=== PATIENT | male | born 1950 | race Caucasian/White ===

== ENCOUNTER 2020-02-08 10:39 | Emergency (ER) | payer MEDICARE, SELFPAY ==
--- NOTE | ~2020-02-08 | XR_ITS ---
EXAMINATION: XR knee LT min 4V DATE: 02/08/2020 12:52 INDICATION: Left knee pain TECHNIQUE: Four views of the left knee were obtained. COMPARISON: None. FINDINGS: Alignment is normal. No fracture or osteochondral lesion. There is mild tricompartmental os teoarthritis characterized by tiny marginal osteophytes. No joint effusion/synovitis. Soft tissues a re unremarkable. IMPRESSION: 1. No acute osseous abnormality. Reviewed, dictated and finalized at location A.
--- NOTE | ~2020-02-08 | XR_ITS ---
EXAMINATION: XR elbow LT min 3V DATE: 02/08/2020 12:51 INDICATION: Left elbow pain. TECHNIQUE: 4 views of left elbow were obtained. COMPARISON: None. FINDINGS: Bone alignment is normal. No fracture. There is mild elbow joint osteoarthritis. There are enthesophytes at medial and lateral humeral epicondyles and at olecranon. No elbow joint effusion. IMPRESSION: 1. Mild elbow joint osteoarthritis. Reviewed, dictated and finalized at location A.
[2020-02-08 11:11] VITALS: BP 103/81; PULSE 78; RESP 18; TEMP 36.7; O2SAT 98
--- NOTE | 2020-02-08 12:33 | ED.EXTPRO ---
HPI - Extremity Problem General Chief complaint: Extremity Problem,Nontraumatic Stated complaint: lt knee & lt elbow pain Time Seen by Provider: 02/08/20 11:31 Source: patient Mode of arrival: ambulatory Limitations: no limitations History of Present Illness HPI Narrative: This is a 69 year old male that presents to the ER for left elbow pain x 1 month. Also reports left knee pain for the last couple of days. No known injury or trauma. Denies fever, erythema or edema. Related Data Allergies Allergy/AdvReac Type Severity Reaction Status Date / Time No Known Allergies Allergy Verified 02/08/20 11:14 Review of Systems Review of Systems: Narrative: CONSTITUTIONAL: Denies fever SKIN: Denies rash MUSCULOSKELETAL: Reports joint pain, and myalgia. All systems reviewed & are unremarkable except as noted in HPI and below PMFSH Past Medical History Medical History (Updated 02/08/20 @ 13:27 by Naida Wooten PA-C) History of CVA (cerebrovascular accident) History of diabetes mellitus History of hyperlipidemia History of hypertension Exam Narrative: Exam Narrative: GENERAL: Well-appearing, well-nourished, and in no acute distress. HEAD: Normocephalic, atraumatic. EYES: EOMI. EXTREMITIES: Normal range of motion. No edema, erythema, or obvious deformity. Normal peripheral pulses SKIN: Warm, dry, no rash. NEURO: No focal deficits. Alert and oriented x3. PSYCH: Normal mood and affect Course Vital Signs Vital signs: Vital Signs Temperature 98.1 F 02/08/20 11:11 Pulse Rate 78 02/08/20 11:11 Respiratory Rate 18 02/08/20 11:11 Blood Pressure 103/81 02/08/20 11:11 Pulse Oximetry 98 02/08/20 11:11 Temperature 98.1 F 02/08/20 11:11 Pulse Rate 78 02/08/20 11:11 Respiratory Rate 18 02/08/20 11:11 Blood Pressure 103/81 02/08/20 11:11 Pulse Oximetry 98 02/08/20 11:11 MDM - Extremity (Nontraumatic) MDM Narrative Medical decision making narrative: Patient presents the emergency department for left elbow and knee pain. No known injuries or trauma. Patient is afebrile and nontoxic-appearing. No edema or erythema of the extremities. Normal range of motion. Normal peripheral pulses. Left elbow and knee x-rays are without acute findings. Does show osteoarthritis. Patient and family updated on case findings. He is to follow-up with his orthopedic doctor. He was given warnings to return to the ER Imaging Data Radiologist's impression: ITS Impressions Elbow X-Ray 02/08/20 12:53 IMPRESSION: 1. Mild elbow joint osteoarthritis. Knee X-Ray 02/08/20 13:00 IMPRESSION: 1. No acute osseous abnormality. Critical Care Time Critical Care Time Critical Care Time: No Discharge Plan Discharge Clinical Impression: Elbow pain, left, Acute pain of left knee Patient Disposition: Home, Self-Care Condition: Stable Instructions: Arthralgia (ED) Additional Instructions: Return to the emergency department if you experience fever, redness and swelling of your extremity, numbness, weakness, or any other symptoms that are concerning to you Rest. Ice to the area. Tylenol or ibuprofen as needed for pain Follow-up with your orthopedic doctor Follow-up/Referrals: PHYSICIAN NOT ON STAFF,NONSTAFF [Primary Care Provider] - Ney Hines MD [Physician] - 1 Week
[2020-02-08 13:52] VITALS: BP 106/63; PULSE 60; RESP 18; TEMP 37.4
== END 2020-02-08 14:01 | disposition home or self-care (01) ==
PROVIDERS: Emergency Provider Emergency Medicine
DX: M25.522 Pain in left elbow (principal); M25.562 Pain in left knee; Z86.73 Personal history of transient ischemic attack (TIA), and cerebral infarction without residual deficits; E11.9 Type 2 diabetes mellitus without complications; E78.5 Hyperlipidemia, unspecified; I10 Essential (primary) hypertension; M19.022 Primary osteoarthritis, left elbow
CPT/HCPCS: 73080; 73564; 99284

== ENCOUNTER 2022-08-09 16:21 | Outpatient (CLI) | payer MEDICARE, SELFPAY ==
--- NOTE | ~2022-08-09 | MR_ITS ---
EXAMINATION: MR cervical spine wo con DATE: 08/09/2022 18:02 INDICATION: Bilateral lower extremity weakness. TECHNIQUE: Magnetic resonance imaging (MRI) of the cervical spine was performed without intravenous c ontrast. Sequences included sagittal T2-weighted FSE, sagittal T2-weighted FS FSE, sagittal T1-weight ed FSE, axial MERGE, and axial T2-weighted FSE. COMPARISON: None FINDINGS: There is 10 degrees levoscoliosis of cervicothoracic spine. There is mild kyphosis of cervi cheryl spine. Vertebral body heights are normal. There is mildly decreased disc height at C4-C5 and C5-C 6 and moderately decreased disc height at C6-C7. The spinal cord signal intensity is normal. The foll owing disc levels are specifically discussed: C2-C3: The disc does not extend beyond the endplate margin. There is mild right uncovertebral joint o steoarthritis. There is severe bilateral facet joint osteoarthritis. There is mild right neural mono inal stenosis. There is no central canal stenosis. C3-C4: There is a central extrusion. There is moderate bilateral uncovertebral joint osteoarthritis. There is severe right and moderate left facet joint osteoarthritis. There is moderate right and mild left neural foraminal stenosis. There is mild central canal stenosis. C4-C5: The disc does not extend beyond the endplate margin. There is mild lateral uncovertebral joint osteoarthritis. There is moderate bilateral facet joint osteoarthritis. There is mild bilateral neur al foraminal stenosis. There is mild central canal stenosis. C5-C6: The disc is bulging. There is moderate bilateral uncovertebral joint osteoarthritis. There is moderate right and mild left facet joint osteoarthritis. There is moderate right and mild left neural foraminal stenosis. There is mild central canal stenosis. C6-C7: The disc is bulging. There is moderate right and severe left uncovertebral joint osteoarthriti s. There is moderate bilateral facet joint osteoarthritis. There is moderate bilateral neural foramin al stenosis. There is mild central canal stenosis. C7-T1: The disc does not extend beyond the endplate margin. There is no uncovertebral joint osteoarth ritis. There is severe bilateral facet joint osteoarthritis. There is mild bilateral neural foraminal stenosis. There is no central canal stenosis. IMPRESSION: 1. Moderate cervical spondylosis. Reviewed, dictated and finalized at location A. [employer]
== END 2022-08-09 16:22 | disposition home or self-care (01) ==
PROVIDERS: Visit Provider Orthopaedic Surgery
DX: R53.1 Weakness (principal); M47.22 Other spondylosis with radiculopathy, cervical region
CPT/HCPCS: 72141